=== PATIENT | male | born 1955 | race Caucasian/White ===

== ENCOUNTER 2020-05-01 09:20 | Inpatient (IN) ==
[2020-05-01 10:01] LABS: Hematocrit 36 % (42-52); Hemoglobin 12.6 g/dL (14.0-18.0); Mean Corpuscular Hemoglobin 31 pg (27-31); Mean Corpuscular Volume 87 fL (80-94); White Blood Count 8.8 10^3/uL (3.5-10.8)
[2020-05-01 10:02] LABS: ABS Eosinophils 0.1 10^3/ul (0-0.6); ABS Lymphocytes 1.9 10^3/ul (1.0-4.8); ABS Monocytes 0.5 10^3/ul (0-0.8); ABS Neutrophils 6.3 10^3/ul (1.5-7.7); Eosinophil % 1.2 %; Lymphocyte % 21.5 %; Mean Corpuscular HGB Conc 35 g/dL (31-36); Mean Platelet Volume 8.6 fL (7.4-10.4); Platelet Count 153 10^3/uL (150-450); Red Cell Distribution Width 14 % (10-15)
[2020-05-01 10:22] LABS: Albumin 3.6 g/dL (3.2-5.2); Albumin/Globulin Ratio 1.8 (1-3); BUN/Creatinine Ratio 21.8 (8-20); C Reactive Protein 1.6 mg/L (<8.01); Calcium 8.5 mg/dL (8.6-10.3); EGFR African American 60.7 (>60); EGFR Non-African American 50.2 (>60); Potassium 4.7 mmol/L (3.5-5.0); Total Bilirubin 1.6 mg/dL (0.2-1.0); Total Protein 5.6 g/dL (6.4-8.9)
[2020-05-01] MEDS ORDERED: NS 0.9% 1000 ml BAG 1,000 ML IV ONE ×2 (11:08→21:06)
[2020-05-01 12:59] LABS: INR 1.28 (0.82-1.09)
[2020-05-01] MEDS: NS 0.9% 1000 ml BAG 1,000 ML IV SCH (13:29)
[2020-05-01] MEDS ORDERED: Dextrose 50% Syringe 50 ml 25 GM/50 ML SYRINGE IV PUSH PRN (13:52)
[2020-05-01 14:18] LABS: Hematocrit 31 % (42-52); Hemoglobin 10.9 g/dL (14.0-18.0)
[2020-05-01 20:14] LABS: Hematocrit 25 % (42-52); Hemoglobin 9.1 g/dL (14.0-18.0)
[2020-05-02 03:00] LABS: Hematocrit 21 % (42-52); Hemoglobin 7.4 g/dL (14.0-18.0)
[2020-05-02] MEDS ORDERED: PEG 3000 GI LAVAGE 1 GALLON PO ONE (07:42)
[2020-05-02 09:19] LABS: ABS Eosinophils 0.1 10^3/ul (0-0.6); ABS Lymphocytes 2.1 10^3/ul (1.0-4.8); ABS Monocytes 0.6 10^3/ul (0-0.8); ABS Neutrophils 6.3 10^3/ul (1.5-7.7); Hematocrit 23 % (42-52); Hemoglobin 8.1 g/dL (14.0-18.0); Lymphocyte % 23.3 %; Mean Corpuscular HGB Conc 36 g/dL (31-36); Mean Corpuscular Hemoglobin 31 pg (27-31); Mean Corpuscular Volume 87 fL (80-94); Mean Platelet Volume 8.6 fL (7.4-10.4); Platelet Count 108 10^3/uL (150-450); Red Cell Distribution Width 14 % (10-15); White Blood Count 9.1 10^3/uL (3.5-10.8)
[2020-05-02 09:38] LABS: BUN/Creatinine Ratio 23.7 (8-20); Calcium 7.7 mg/dL (8.6-10.3); EGFR African American 66.7 (>60); EGFR Non-African American 55.1 (>60); Potassium 4.5 mmol/L (3.5-5.0)
[2020-05-02 10:56] LABS: Urine Appearance Clear; Urine Bilirubin Negative (Negative); Urine Blood Negative (Negative); Urine Color Yellow; Urine Glucose 1+(50 mg/dL) (Negative); Urine Ketones Negative (Negative); Urine Nitrite Negative (Negative); Urine Protein Negative (Negative); Urine Urobilinogen Negative (Negative)
[2020-05-02] MEDS ORDERED: Perflutren Lipid Microsphere 3 ML VIAL ONE (14:03)
[2020-05-02] MEDS ORDERED: fentaNYL 100 mcg/2 ml 50 MCG/ML VIAL ONE (14:48)
[2020-05-02] MEDS ORDERED: Midazolam 10 mg/10 ml VIAL 1 mg/ml 10 ml VIAL (10 mg) ONE (14:48)
[2020-05-02 17:50] LABS: Hematocrit 19 % (42-52)
[2020-05-02] MEDS: NS 0.9% 1000 ml BAG 1,000 ML IV SCH ×2 (18:00→21:01)
[2020-05-02 19:45] LABS: Magnesium 1.9 mg/dL (1.9-2.7)
[2020-05-02 20:25] LABS: TSH Ultra Thyroid Stim Horm 0.35 mcIU/mL (0.34-5.60)
[2020-05-02 22:05] LABS: Hematocrit 19 % (42-52); Hemoglobin 6.9 g/dL (14.0-18.0)
[2020-05-03 04:21] LABS: Hematocrit 21 % (42-52); Hemoglobin 7.6 g/dL (14.0-18.0)
[2020-05-03 04:35] LABS: BUN/Creatinine Ratio 16.4 (8-20); Calcium 7.6 mg/dL (8.6-10.3); EGFR African American 72.4 (>60); EGFR Non-African American 59.8 (>60); Magnesium 1.8 mg/dL (1.9-2.7)
[2020-05-03] MEDS: NS 0.9% 1000 ml BAG 1,000 ML IV SCH (09:29)
[2020-05-03 10:19] LABS: Hematocrit 22 % (42-52); Hemoglobin 7.5 g/dL (14.0-18.0)
[2020-05-03] MEDS ORDERED: Magnesium Sulfate 2 gm BAG 2 GM/50 ML BAG IVPB ONE (11:21)
[2020-05-03 15:58] LABS: Hematocrit 22 % (42-52); Hemoglobin 7.8 g/dL (14.0-18.0)
[2020-05-04 06:27] LABS: ABS Eosinophils 0.2 10^3/ul (0-0.6); ABS Monocytes 0.7 10^3/ul (0-0.8); ABS Neutrophils 5.4 10^3/ul (1.5-7.7); Eosinophil % 2.1 %; Hematocrit 24 % (42-52); Hemoglobin 8.6 g/dL (14.0-18.0); Lymphocyte % 23.7 %; Mean Corpuscular HGB Conc 36 g/dL (31-36); Mean Corpuscular Hemoglobin 32 pg (27-31); Mean Corpuscular Volume 87 fL (80-94); Mean Platelet Volume 8.3 fL (7.4-10.4); Nucleated Red Blood Cells % 0.1; Platelet Count 114 10^3/uL (150-450); Red Blood Count 2.72 10^6 /uL (4.18-5.48); Red Cell Distribution Width 15 % (10-15); White Blood Count 8.4 10^3/uL (3.5-10.8)
[2020-05-04 06:34] LABS: BUN/Creatinine Ratio 9.1 (8-20); Calcium 8.3 mg/dL (8.6-10.3); EGFR African American 73.1 (>60); EGFR Non-African American 60.4 (>60); Magnesium 1.8 mg/dL (1.9-2.7); Potassium 3.8 mmol/L (3.5-5.0)
[2020-05-04] MEDS ORDERED: Potassium Chlor 20 meq TAB.ER PO ONE (10:38)
[2020-05-04] MEDS ORDERED: Magnesium Sulfate IV 3 GM in NS 0.9% 100 ml BAG 100 ML IVPB ONE (11:00)
[2020-05-04 11:21] VITALS: BP 112/65
[2020-05-08 23:43] LABS: Urine Collection Duration 24 h; Urine Total Metanephrines 583 mcg/24 h
[2020-05-09 11:09] LABS: Urine Collection Duration 24 h
== END 2020-05-04 14:21 | disposition home or self-care (01) | DRG 254 ==
LOC: ED 09:20 → MEDTELE 09:20
PROVIDERS: ADMIT Internal Medicine; ATTEND Internal Medicine